=== PATIENT | female | born 1945 | race Caucasian/White ===

== ENCOUNTER 2018-07-16 08:40 | Day surgery (SDC) | payer OTHER, BC ==
[2018-07-15 12:34] VITALS: BMI 20.5
[~2018-07-16 08:40] MED LIST: VANCOMYCIN 500 MG VIAL (RESTRICTED TO ID ONLY) IVPB ONE
[2018-07-16] MEDS ORDERED: KETOROLAC TROMETHAMINE 0.5% EYE DROP 1 DROP DROPS ONE (09:44)
[2018-07-16] MEDS ORDERED: CYCLOPENTOLATE HCL 1% OPHTH SOLN 2 ML BOTTLE ONE (09:44)
[2018-07-16] MEDS ORDERED: PHENYLEPHRINE 2.5% OPHTH SOLN 15 ML BOTTLE ONE (09:44)
[2018-07-16] MEDS ORDERED: TROPICAMIDE 1% OPHTH SOLN 15 ML BOTTLE ONE (09:44)
[2018-07-16] MEDS ORDERED: OFLOXACIN 0.3% OPHTHALMIC SOLUTION 5 ML BOTTLE ONE (09:44)
[2018-07-16] MEDS ORDERED: MIDAZOLAM HCL 2 MG/2 ML SINGLE DOSE VIAL ONE (09:45)
[2018-07-16] MEDS: PHENYLEPHRINE 2.5% OPHTH SOLN 15 ML BOTTLE OP SCH ×2 (09:50→10:00)
[2018-07-16] MEDS: KETOROLAC TROMETHAMINE 0.5% EYE DROP 1 DROP DROPS OP SCH ×2 (09:50→10:00)
[2018-07-16] MEDS: TROPICAMIDE 1% OPHTH SOLN 15 ML BOTTLE OP SCH ×2 (09:50→10:00)
[2018-07-16] MEDS: CYCLOPENTOLATE HCL 1% OPHTH SOLN 2 ML BOTTLE OP SCH ×2 (09:50→10:00)
[2018-07-16] MEDS: OFLOXACIN 0.3% OPHTHALMIC SOLUTION 5 ML BOTTLE OP SCH ×2 (09:50→10:00)
[2018-07-16] MEDS ORDERED: TETRACAINE 0.5% OPHTH SOLN 2 ML BOTTLE TP ONE (10:09)
[2018-07-16] MEDS ORDERED: LIDOCAINE HCL 1% PRESERVATIVE FREE - 30ML VIAL IO ONE (10:20)
[2018-07-16] MEDS ORDERED: VANCOMYCIN 500 MG VIAL (RESTRICTED TO ID ONLY) ONE (10:21)
[2018-07-16] MEDS ORDERED: CHONDROITIN SU A/HYALUR SOD 1 KIT IO ONE (10:21)
[2018-07-16] MEDS ORDERED: TETRACAINE 0.5% OPHTH SOLN 2 ML BOTTLE ONE (10:22)
[2018-07-16] MEDS ORDERED: WATER FOR INJ,STERILE 10 ML ONE ×2 (10:22→10:23)
[2018-07-16] MEDS ORDERED: LIDOCAINE HCL/PF 1% SDV 5ML VIAL ONE (10:22)
[2018-07-16] MEDS ORDERED: EPINEPHrine/PF 1 MG/1 ML (1:1,000) AMPULE SQ ONE (10:25)
[2018-07-16] MEDS ORDERED: VANCOMYCIN 500 MG VIAL (RESTRICTED TO ID ONLY) IVPB ONE (10:40)
--- NOTE | 2018-07-16 11:41 | SPEC ---
DATE OF OPERATION: DATE OF DICTATION: 07/16/2018 PREOPERATIVE DIAGNOSIS: Cataract, left eye. POSTOPERATIVE DIAGNOSIS: Cataract, left eye. OPERATION: Phacoemulsification of left cataract with posterior chamber intraocular lens implantation. Lens used SN60WF, 18.5-diopter power, serial number [id number]. SURGEON: Issac Banks MD ANESTHESIA: Topical, MAC. COMPLICATIONS: None. PROCEDURE: The patient was brought to the operating room and correctly identified along with the operative site and the correct intraocular lens hawley. The patient was then prepped and draped in the usual sterile fashion including 5% Betadine solution in the conjunctival sac and an eyelid drape. An eyelid speculum was then placed in the eye. A paracentesis port was created and approximately 0.5 mL of preservative-free lidocaine was then injected into the eye. Viscoelastic was then injected to inflate the anterior chamber. A temporal clear corneal wound was created. A continuous circular capsulorrhexis was performed. The nucleus was then hydrodissected with BSS and removed with phacoemulsification. The remaining cortical material was irrigated and aspirated. Viscoelastic was injected to inflate the capsular bag and the intraocular lens was then implanted into the capsular bag. The remaining viscoelastic was irrigated and aspirated from the eye. The IOL was noted to be well centered and completely covered by the anterior capsulorrhexis. Topical vancomycin was placed and the eye patched and shielded. All wounds were tested and found to be watertight. No suture was placed. The eye was then shielded. The patient was then discharged from the operating room in stable condition. ISSAC BANKS M.D. [id number] [id number]
[2018-07-16] MEDS ORDERED: CHONDROITIN SU A/HYALUR SOD 1 KIT ONE (11:58)
[2018-07-16] MEDS ORDERED: ACETAMINOPHEN 325 MG TABLET (FP) PO PRN (14:04)
[2018-07-16 15:19] VITALS: BP 140/73; PULSE 68; TEMP 97.9
== END 2018-07-16 11:30 | disposition home or self-care (01) ==
LOC: JASU-SURG 08:40
PROVIDERS: ATTEND Ophthalmology
PROC: 08RK3JZ Replacement of Left Lens with Synthetic Substitute, Percutaneous Approach (ICD-10-PCS; principal; 2018-07-16 10:00)
DX: H26.9 Unspecified cataract (principal)

== ENCOUNTER 2018-12-31 08:35 | Day surgery (SDC) | payer OTHER, BC ==
[2018-12-30 08:51] VITALS: BMI 20.3
[~2018-12-31 08:35] MED LIST changes: +ACETAMINOPHEN 325 MG TABLET (FP) PO PRN; -VANCOMYCIN 500 MG VIAL (RESTRICTED TO ID ONLY) IVPB ONE
[2018-12-31] MEDS ORDERED: KETOROLAC TROMETHAMINE 0.5% EYE DROP 1 DROP DROPS ONE (08:48)
[2018-12-31] MEDS ORDERED: CYCLOPENTOLATE HCL 1% OPHTH SOLN 2 ML BOTTLE ONE (08:48)
[2018-12-31] MEDS ORDERED: OFLOXACIN 0.3% OPHTHALMIC SOLUTION 5 ML BOTTLE ONE (08:48)
[2018-12-31] MEDS ORDERED: TROPICAMIDE 1% OPHTH SOLN 15 ML BOTTLE ONE (08:48)
[2018-12-31] MEDS ORDERED: PHENYLEPHRINE 2.5% OPHTH SOLN 15 ML BOTTLE ONE (08:48)
[2018-12-31] MEDS: TROPICAMIDE 1% OPHTH SOLN 15 ML BOTTLE OP SCH ×3 (08:50→09:00)
[2018-12-31] MEDS: CYCLOPENTOLATE HCL 1% OPHTH SOLN 2 ML BOTTLE OP SCH ×3 (08:50→09:00)
[2018-12-31] MEDS: PHENYLEPHRINE 2.5% OPHTH SOLN 15 ML BOTTLE OP SCH ×3 (08:50→09:00)
[2018-12-31] MEDS: OFLOXACIN 0.3% OPHTHALMIC SOLUTION 5 ML BOTTLE OP SCH ×3 (08:50→09:00)
[2018-12-31] MEDS: KETOROLAC TROMETHAMINE 0.5% EYE DROP 1 DROP DROPS OP SCH ×3 (08:50→09:00)
[2018-12-31] MEDS ORDERED: MIDAZOLAM HCL 2 MG/2 ML SINGLE DOSE VIAL ONE (10:00)
[2018-12-31] MEDS ORDERED: TETRACAINE 0.5% OPHTH SOLN 2 ML BOTTLE OD ONE (10:06)
[2018-12-31] MEDS ORDERED: POVIDONE-IODINE 5% OPHTHALMIC PREP 30 ML SOLUTION OD ONE (10:06)
[2018-12-31] MEDS ORDERED: BSS (NA/CA/MG/K) BALANCED SALT SOLUTION OPHTH SOLN 15 ML BOTTLE OD ONE (10:14)
[2018-12-31] MEDS ORDERED: LIDOCAINE HCL 1% PRESERVATIVE FREE - 30ML VIAL IO ONE (10:14)
[2018-12-31] MEDS ORDERED: CHONDROITIN SU A/HYALUR SOD 1 KIT IO ONE (10:14)
[2018-12-31] MEDS ORDERED: EPINEPHrine/PF 1 MG/1 ML (1:1,000) AMPULE IO ONE (10:14)
[2018-12-31] MEDS ORDERED: MANNITOL 25% 12.5 GM/50 ML VIAL IVPB ONE (10:34)
--- NOTE | 2018-12-31 13:33 | OP ---
DATE OF OPERATION: 12/31/2018 SURGEON: Issac Banks MD PREOPERATIVE DIAGNOSIS: Cataract, right eye. POSTOPERATIVE DIAGNOSIS: Cataract, right eye. PROCEDURE: Phacoemulsification of right cataract with posterior chamber intraocular lens implantation. The lens used SN60WF 19.0 diopter power, serial No. [id number]. ANESTHESIA: Topical MAC. COMPLICATIONS: None. DESCRIPTION OF PROCEDURE: The patient was brought to the operating room and correctly identified along with the operative site and the correct intraocular lens hawley. She was then prepped and draped in the usual sterile fashion including 5% Betadine solution in the conjunctival sac and an eyelid drape. An eyelid speculum was then placed into the right eye. A paracentesis port was created, and 0.5 mL of preservative-free Lidocaine 1% was given intracamerally. Viscoelastic was then injected to inflate the anterior chamber. A temporal clear corneal wound was created. A continuous circular capsulorrhexis was performed. The nucleus was then hydro-dissected with BSS and removed with phacoemulsification. During the removal of the last quadrant, the patient began to violently cough. The phaco tip was quickly withdrawn, and when the eye was inspected, the posterior capsule was still noted to be intact. The patient, however, continued to violently cough and after suctioning of her throat as well as giving her an ice cube to lubricate her throat, we were finally able to control it. Irrigation aspiration was then put in the eye. However, the anterior chamber was not able to be deepened significantly, and the capsule was flat. This was preventing safe removal of the remaining cortex. The lid speculum was adjusted, but the anterior chamber could still not be deepened. The red reflex remained intact. Mannitol 12.5 g was given intravenously, and after 10-15 minutes, the capsule was then able to be deepened enough sufficiently to perform cortical removal. Viscoelastic was injected to inflate the capsular bag. The lens was injected into the capsular bag. The Viscoelastic was irrigated and aspirated from the eye. A single 10-0 nylon suture was placed in the temporal clear corneal wound despite the wound being watertight in case the patient begins to cough again. At the end of surgery, all wounds were tested and found to be watertight. The intraocular lens was well centered and covered by the anterior capsular border. Topical vancomycin and Betadine given. The eye was patched and shielded, and the patient was discharged from the operating room in a stable condition ISSAC BANKS M.D. [id number] [id number] MTDD
[2018-12-31 16:20] VITALS: BP 118/75; PULSE 72; TEMP 98
== END 2018-12-31 12:00 | disposition home or self-care (01) ==
LOC: JASU-SURG 08:35
PROVIDERS: ATTEND Ophthalmology
PROC: 08RJ3JZ Replacement of Right Lens with Synthetic Substitute, Percutaneous Approach (ICD-10-PCS; principal; 2018-12-31 10:00)
DX: H26.9 Unspecified cataract (principal)

== ENCOUNTER 2024-06-22 08:47 | Observation (INO) | payer OTHER ==
[2024-06-22 09:03] VITALS: BMI 20.1
[2024-06-22 11:02] LABS: BASO % 0.8 % (0-2.0); EOS % 3.5 % (0-4.5); HEMATOCRIT 33.4 % (32.4-45.2); HEMOGLOBIN 11.4 GM/dL (10.7-15.3); LYMPH % 28.1 % (8-40); MCH 29.4 pg (25.7-33.7); MCHC 34.1 g/dl (32.0-36.0); MEAN PLT VOLUME 7.9 fl (7.5-11.1); MONO % 15.5 % (3.8-10.2); NEUT % 52.1 % (42.8-82.8); PLATELET COUNT 162 10^3/uL (134-434); RBC 3.88 M/mm3 (3.60-5.2); WHITE BLOOD COUNT 2.7 K/mm3 (4.0-10.0)
[2024-06-22 11:36] LABS: POTASSIUM 4.6 mmol/L (3.5-5.1)
[2024-06-22 11:38] LABS: ALBUMIN 3.4 g/dl (3.4-5.0); BLOOD UREA NITROGEN 21.5 mg/dL (7-18); CALCIUM 8.7 mg/dL (8.5-10.1)
[2024-06-22 11:42] LABS: CREATININE 0.7 mg/dL (0.55-1.3)
[2024-06-22 11:43] LABS: BILIRUBIN,TOTAL 0.4 mg/dL (0.2-1); TOT PROT 6.6 g/dl (6.4-8.2)
[2024-06-22] MEDS ORDERED: ALBUTEROL SO4 2.5/IPRATROPIUM 0.5 INH SOL 3 ML VIAL.NEB. NEB ONE (12:13)
[2024-06-22 12:19] VITALS: BP 115/67; PULSE 66; RESP 20; TEMP 97.9
[2024-06-22] MEDS: ALBUTEROL SO4 2.5/IPRATROPIUM 0.5 INH SOL 3 ML VIAL.NEB. NEB ONE (12:29)
[2024-06-22] MEDS ORDERED: ALBUTEROL SO4 2.5/IPRATROPIUM 0.5 INH SOL 3 ML VIAL.NEB. NEB SCH (14:00)
[2024-06-22] MEDS ORDERED: HEPARIN NA (PORCINE) 5,000 UNITS/ML 1ML VIAL SQ SCH (22:00)
[2024-06-23] MEDS ORDERED: LEVOTHYROXINE NA 25 MCG TABLET (FP) PO SCH (07:00)
== END 2024-06-22 23:03 | disposition left against medical advice (07) ==
LOC: JER 08:47 → JERBED 13:11
PROVIDERS: ADMIT Internal Medicine; ATTEND Internal Medicine
PROC: 3E0F7GC Introduction of Other Therapeutic Substance into Respiratory Tract, Via Natural or Artificial Opening (ICD-10-PCS; principal; 2024-06-22)
DX: J44.9 Chronic obstructive pulmonary disease, unspecified (principal); E03.9 Hypothyroidism, unspecified; R55 Syncope and collapse; Z87.891 Personal history of nicotine dependence
CPT/HCPCS: 36415; 70450-TC; 71046-TC-FY; 80053; 84484; 85025; 93005; 93010; 93306-TC; 94640; 99285-25; G0378

== ENCOUNTER 2024-07-04 21:36 | Observation (INO) | payer OTHER ==
[2024-07-04 22:15] LABS: HEMATOCRIT 36.1 % (32.4-45.2); HEMOGLOBIN 12.2 G/dL (10.7-15.3); MCH 29.4 pg (25.7-33.7); MCHC 33.7 g/dl (32.0-36.0); MEAN CELL VOLUME 87.2 fl (80-96); MEAN PLT VOLUME 8.4 fl (7.5-11.1); PLATELET COUNT 181.1 10^3/uL (134-434); RBC 4.14 10^6/uL (3.60-5.2); RDW 13.7 % (11.6-15.6); WHITE BLOOD COUNT 4.3 10^3/uL (4.0-10.8)
[2024-07-04 22:38] LABS: ALBUMIN 4.3 g/dl (3.4-5.0); ALK PHOS 78 U/L (45-117); ANION GAP 7 mmol/L (4-13); BILIRUBIN,TOTAL 0.3 mg/dl (0.2-1); CALCIUM 9.3 mg/dl (8.5-10.1); CHLORIDE 107 mmol/L (98-107); CO2 26 mmol/L (21-32); CREATININE 0.6 mg/dl (0.6-1.3); GLUCOSE,RANDOM 101 mg/dl (74-106); POTASSIUM 3.8 mmol/L (3.5-5.1); SGOT/AST 92 U/L (15-37); SGPT/ALT 94 U/L (7-52); SODIUM 140 mmol/L (136-145)
[2024-07-04 22:44] LABS: INR 0.97 (0.83-1.09); PROTHROMBIN TIME (PATIENT) 11.1 SEC (9.7-13.0)
[2024-07-05] MEDS ORDERED: ALBUTEROL SO4 HFA INHALER IH PRN (03:24)
[2024-07-05 05:30] VITALS: BMI 21.3
[2024-07-05] MEDS: LEVOTHYROXINE NA 25 MCG TABLET (FP) PO SCH (07:06)
[2024-07-05] MEDS: ENOXAPARIN NA (PORCINE) 40 MG/0.4 ML DISP.SYRIN SQ SCH (10:15)
[2024-07-05] MEDS: LACTATED RINGERS SOLUTION 1,000 ML/1,000 ML INFUS.BAG IV SCH (10:17)
[2024-07-05 10:59] LABS: CHOLESTEROL 135 mg/dL (50-200); HDL CHOLESTEROL 49 mg/dL (40-60); LDL CHOLESTEROL (ONLY SJRH) 65 mg/dL (5-100)
[2024-07-05] MEDS: ACETAMINOPHEN 500 MG TABLET (FP) PO PRN (17:07)
[2024-07-05] MEDS: MIRTAZAPINE 15 MG TABLET (FP) PO SCH (21:51)
[2024-07-06 02:02] VITALS: RESP 18
[2024-07-06 07:51] LABS: HEMATOCRIT 34.8 % (32.4-45.2); HEMOGLOBIN 11.3 G/dL (10.7-15.3); MCH 28.3 pg (25.7-33.7); MCHC 32.5 g/dl (32.0-36.0); MEAN CELL VOLUME 87.2 fl (80-96); MEAN PLT VOLUME 8.5 fl (7.5-11.1); PLATELET COUNT 173.2 10^3/uL (134-434); RBC 3.99 10^6/uL (3.60-5.2); RDW 13.3 % (11.6-15.6)
[2024-07-06 08:36] LABS: MAGNESIUM 1.9 mg/dL (1.8-2.4)
[2024-07-06 12:46] LABS: ALBUMIN 3.8 g/dl (3.4-5.0); CREATININE 0.7 mg/dl (0.6-1.3); POTASSIUM 4.5 mmol/L (3.5-5.1); TOT PROT 6.1 g/dl (6.4-8.2)
[2024-07-06 14:19] LABS: BILIRUBIN,TOTAL 0.4 mg/dL (0.2-1)
[2024-07-06] MEDS ORDERED: BENZOCAINE/MENTH/CETYLPYRD CL 1 EACH LOZENGE MM PRN (14:22)
[2024-07-06 14:51] VITALS: BP 131/75; PULSE 70; TEMP 97.7
[2024-07-06] MEDS: FLUTICASONE PROP 0.05% 16 GM NASAL SPRAY NS SCH (16:12)
== END 2024-07-06 17:38 | disposition home or self-care (01) ==
LOC: FER 21:36 → FM/S 07-05 03:21
PROVIDERS: ADMIT Internal Medicine; ATTEND Internal Medicine
DX: G45.9 Transient cerebral ischemic attack, unspecified (principal); J44.9 Chronic obstructive pulmonary disease, unspecified; E03.9 Hypothyroidism, unspecified
CPT/HCPCS: 36415; 70450-TC; 70551-TC; 71045-TC-FY; 76705-TC; 80053; 80061; 81003; 81015; 82607; 82746; 83036; 83735; 84100; 84439; 84443; 85025; 85027; 85610; 86705; 86709; 86803; 87340; 87517; 93005; 93880-TC; 96360; 96372; 97116-GP; 97161-GP; 99285-25; G0378